=== PATIENT | male | born 1945 | race Caucasian/White ===

== ENCOUNTER 2018-12-11 19:33 | Emergency (ER) | payer MEDICARE, OTHER ==
[~2018-12-11 19:33] MED LIST: Iopamidol 370 76% 125 ML VIAL FS ONE; Sodium Chloride 0.9% 100 ML BAG ONE
[2018-12-11 20:08] LABS: #Basophils 0.1 thou/uL (0.0-0.2); #Eosinphils 0.1 thou/uL (0.0-0.7); #Lymphocytes 1.5 thou/uL (1.20-3.40); #Monocytes 0.8 thou/uL (0.11-0.59); #Neutrophils 5.2 thou/uL (1.40-6.50); %Basophils 1.1 % (0.0-1.0); %Eosinophils 1.2 % (0.0-10.0); %Lymphocytes 19.6 % (21.0-51.0); %Monocytes 10.9 % (0.0-10.0); %Neutrophils 67.3 % (42.0-75.0); Hemoglobin 14.7 g/dL (14.0-18.0); Mean Corpuscular HGB CONC 33.7 g/dL (32.0-36.0); Mean Corpuscular Hemoglobin 32.1 pg (27.0-31.0); Mean Corpuscular Volume 95.2 fL (78.0-98.0); Mean Platelet Volume 9.8 fL (7.4-10.4); Platelet Count 208 thou/uL (130-400); RBC Distribution Width 11.9 % (11.5-14.5); Red Blood Cell (RBC) Count 4.57 mill/uL (4.70-6.10); White Blood Cell (WBC) Count 7.7 thou/uL (4.8-10.8)
[2018-12-11] MEDS ORDERED: Sodium Chloride 0.9% 500 ML ONE (20:20)
[2018-12-11 20:30] LABS: ALT (SGPT) 21 U/L (8-55); AST (SGOT) 27 U/L (5-34); Alkaline Phosphatase 50 U/L (40-150); Anion Gap 14 mmol/L (10-20); BUN (Urea Nitrogen) 13 mg/dL (8.4-25.7); Bilirubin, Total 0.7 mg/dL (0.2-1.2); Calc. Creatinine Clearance 0 mL/min (70-130); Calcium 9.2 mg/dL (7.8-10.44); Carbon Dioxide 24 mmol/L (23-31); Chloride 108 mmol/L (98-107); Estimated GFR-MDRD 61; Globulin 2.3 g/dL (2.4-3.5); Glucose 90 mg/dL (83-110); Potassium 4.5 mmol/L (3.5-5.1); Protein, Total 6.3 g/dL (5.8-8.1); Sodium 141 mmol/L (136-145)
--- NOTE | 2018-12-11 20:43 | RAD ---
CHEST ONE VIEW: 12/11/18 HISTORY: Dyspnea. COMPARISON: 06/17/17. FINDINGS: Monitor leads overlie the chest. Heart size is within normal limits. The lungs are clear. Evidence fo r right sided nipple shadow. IMPRESSION: No evidence for significant acute intrathoracic disease. No pneumonia, edema, or pleural effusion. At herosclerosis of the aorta. POS: [facility]
--- NOTE | 2018-12-11 22:21 | CT ---
CT ANGIOGRAM CHEST WITH 3D RENDERIN12/11/18 HISTORY: Dyspnea. There is some very minimal pleural based linear and parenchymal changes in the lung bases probable ch ronic. No CT evidence for acute pulmonary embolism. No evidence for aortic aneurysm or dissection. No pleural effusion or pericardial effusion. There is a somewhat oblong 0.7 x 1.7 cm diameter partially calcified nodule in the left lobe of the thyroid. IMPRESSION: No CT evidence for acute pulmonary embolism. Left lobe of thyroid nodule. Minimal linear and chronic changes in the posterior inferior lung bases. POS: [id number]
== END 2018-12-11 21:45 | disposition short-term general hospital (02) ==
LOC: MADERS 19:33
DX: I48.92 Unspecified atrial flutter (principal); Z79.82 Long term (current) use of aspirin; Z79.899 Other long term (current) drug therapy
CPT/HCPCS: 71045; 71275; 80053; 83880; 84484; 85025; 85379; 93005; 94760; 96361; 96374; J7050

== ENCOUNTER 2023-03-01 14:18 | Emergency (ER) | payer MEDICARE ==
[2023-03-01 14:56] LABS: Bilirubin Negative (Negative); Blood, Urine Trace (Negative); Clarity Slightly Cloudy (Clear); Glucose, Urine (Dipstick) Negative (Negative); Ketone, Urine Negative (Negative); Leukocyte Large (Negative); Nitrite Negative (Negative); Protein, Urine (Dipstick) Negative (Neg-Trace); Urobilinogen 0.2 mg/dL (Less than 2); pH, Urine 5.5 (5.0-9.0)
[2023-03-01 15:07] LABS: Bacteria/HPF 1+ HPF (None Seen); WBC/HPF Greater Than 50 HPF (0-3)
[2023-03-01 15:08] LABS: Squamous Epithelial 0-3 HPF (0-3)
== END 2023-03-01 15:42 | disposition home or self-care (01) ==
LOC: MADERS 14:18
DX: N39.0 Urinary tract infection, site not specified (principal); I25.10 Atherosclerotic heart disease of native coronary artery without angina pectoris; E78.00 Pure hypercholesterolemia, unspecified; Z79.82 Long term (current) use of aspirin
CPT/HCPCS: 81003; 81015; 99283

== ENCOUNTER 2025-09-28 08:04 | Emergency (ER) | payer MEDICARE ==
[2025-09-28 08:44] LABS: Glucose, Urine (Dipstick) Negative (Negative); Leukocyte Negative (Negative); Protein, Urine (Dipstick) Negative (Neg-Trace); Specific Gravity, Urine 1.015 (1.005-1.030)
[2025-09-28 08:45] LABS: #Basophils 0.1 thou/uL (0.0-0.2); #Eosinophils 0.1 thou/uL (0.0-0.7); #Lymphocytes 1.8 thou/uL (1.20-3.40); #Monocytes 0.8 thou/uL (0.11-0.59); #Neutrophils 2.7 thou/uL (1.40-6.50); %Basophils 2.3 % (0.0-1.0); %Eosinophils 2.1 % (0.0-10.0); %Lymphocytes 32.1 % (21.0-51.0); %Monocytes 13.8 % (0.0-10.0); %Neutrophils 49.7 % (42.0-75.0); Hematocrit 48.1 % (42.0-52.0); Hemoglobin 15.8 g/dL (14.0-18.0); Mean Corpuscular Hemoglobin 30.6 pg (27.0-31.0); Mean Corpuscular Volume 93.4 fl (78.0-98.0); Platelet Count 165 10x3/uL (130-400); Red Blood Cell (RBC) Count 5.15 mill/uL (4.70-6.10); White Blood Cell (WBC) Count 5.4 10x3/uL (4.8-10.8)
[2025-09-28 08:56] LABS: Bacteria/HPF Rare-Few HPF (None Seen); CAUTI Indications for Culture Pelvic or flank pain; RBC/HPF 0-3 HPF (0-3); WBC/HPF 0-3 HPF (0-3)
[2025-09-28 08:57] LABS: Urine Culture Reflex No No
[2025-09-28 09:03] LABS: ALT (SGPT) 35 U/L (Less than 45); AST (SGOT) 47 U/L (11-34); Albumin 4.2 g/dL (3.1-4.5); Alkaline Phosphatase 54 U/L (40-110); Anion Gap 14 mmol/L (10-20); BUN (Urea Nitrogen) 8 mg/dL (8.4-25.7); Bilirubin, Total 0.8 mg/dL (0.3-1.2); Calc. Creatinine Clearance 0 mL/min (70-130); Calcium 9.0 mg/dL (7.8-10.44); Carbon Dioxide 24 mmol/L (23-31); Chloride 109 mmol/L (98-107); Globulin 2.6 g/dL (2.4-3.5); Glucose 80 mg/dL (83-110); Lipase 12 U/L (8-78); Potassium 4.3 mmol/L (3.5-5.1); Sodium 143 mmol/L (136-145)
[2025-09-28 09:04] LABS: Troponin I Less than 0.010 ng/mL (< 0.028)
== END 2025-09-28 10:10 | disposition home or self-care (01) ==
LOC: MADERS 08:04
DX: K59.00 Constipation, unspecified (principal); I10 Essential (primary) hypertension
CPT/HCPCS: 74177; 80053; 80307; 81001; 83690; 84484; 85025; 93005; J7030

== ENCOUNTER 2025-11-29 12:04 | Outpatient (CLI) | payer MEDICARE | END 2025-11-29 12:05 | disposition home or self-care (01) | LOC: MADLAB 12:04 | PROVIDERS: ATTEND Internal Medicine Hematology & Oncology | DX: N40.1 Benign prostatic hyperplasia with lower urinary tract symptoms (principal); N39.0 Urinary tract infection, site not specified | CPT/HCPCS: 87077; 87086 ==